=== PATIENT | female | born 1965 | race Caucasian/White ===

== ENCOUNTER 2024-05-02 09:07 | Outpatient (CLI) | payer BC, SELFPAY ==
--- NOTE | ~2024-05-02 | PE_ITS ---
EXAMINATION: PET skull to mid thigh DATE: 05/02/2024 10:59 INDICATION: Generalized enlarged lymph nodes. TECHNIQUE: Blood glucose level was 92 mg/dL. 9.927 mCi of 18-fluorodeoxyglucose (18-FDG) was administ ered i.v. Low dose computed tomography (CT) images were acquired from the base of the brain to the pr oximal thighs for attenuation correction and anatomic localization. Automated exposure control was em ployed. Dose-length product (DLP) was 725 mGy-cm. Positron emission tomography (PET) images were acqu ired in the same distribution. COMPARISON: Neck CT 03/13/2024, ultrasound 02/04/24 FINDINGS: Head/neck: There are no pathologically enlarged lymph nodes. Chest: The lungs demonstrate mild atelectasis. No pleural effusion. The heart size is normal. There a re coronary artery calcifications. There are calcifications aortic valve. No pericardial effusion. Th ere are no pathologically enlarged lymph nodes. Median sternotomy wires are noted. 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 The gallbladder, spleen, pancreas, adrenal glands, and kidneys are normal. There are no dilated loops of bowel. The appendix is normal. There are no pathologically enlarged lymph nodes. There is n o ascites. There is no osseous malignancy. IMPRESSION: 1. No abnormal lymphadenopathy. Reviewed, dictated and finalized at location A. [employer]
[2024-05-02 09:35] LABS: Glucose Point of Care 92 mg/dl (65-105)
== END 2024-05-02 09:08 | disposition home or self-care (01) ==
LOC: ANHIMG 09:13
PROVIDERS: PCP Physician Assistant; Visit Provider Physician Assistant
DX: R59.1 Generalized enlarged lymph nodes (principal)
CPT/HCPCS: 78815; A9552